=== PATIENT | male | born 1955 | race Caucasian/White ===

== ENCOUNTER 2022-09-05 15:45 | Outpatient (CLI) | payer MEDICARE, OTHER, SELFPAY | END 2022-09-05 15:46 | disposition home or self-care (01) | PROVIDERS: PCP Family Medicine; Visit Provider Family Medicine | DX: Z00.00 Encounter for general adult medical examination without abnormal findings (principal); R53.83 Other fatigue; I10 Essential (primary) hypertension; R73.01 Impaired fasting glucose; Z13.6 Encounter for screening for cardiovascular disorders; Z12.5 Encounter for screening for malignant neoplasm of prostate | CPT/HCPCS: 80053; 80061; 84153; 84443 ==

== ENCOUNTER 2022-10-01 20:29 | Outpatient (CLI) | payer MEDICARE, SELFPAY ==
--- NOTE | 2022-10-17 08:50 | W.PM.SLEEP ---
Sleep Study Details Details Interpreting Provider: Fanny Date of Sleep Study: 10/01/22 Sleep Study Details: STUDY TYPE:? Hospital-based with CPAP titration ? BMI:? 44.2 ORDERING PROVIDER:? Patti INDICATION:? Concerns about sleep apnea ? SLEEP SUMMARY:? 321 minutes total sleep time, efficiency 68.8, arousal index 38.5 RESPIRATORY SUMMARY:? AHI 51.6, RDI 88.7 Supine AHI 124.4. There was no supine REM stage sleep. Nonsupine AHI 16.2, nonsupine RDI 71.4 CPAP was titrated to a pressure of 17 decreasing AHI to 1.3 including 53 minutes of mixed supine and nonsupine REM stage sleep. This would be considered a successful titration. PERIODIC LIMB MOVEMENTS OF SLEEP:? Pretreatment index 18.9, index with arousal 0. Post treatment index 0. CARDIAC:? Awake 66, asleep 56, frequent PVCs and PACs noted IMPRESSION:? Severe obstructive sleep apnea with supine position dependency. CPAP titration was relatively affected at a pressure of 17 decreasing AHI to 1.3 including both supine and nonsupine REM stage sleep. RECOMMENDATION: Would initiate AutoSet CPAP at a pressure of 12-18. Close follow-up is recommended.
== END 2022-10-01 20:30 | disposition home or self-care (01) ==
LOC: SLEEP 20:29
PROVIDERS: PCP Family Medicine; Visit Provider Family Medicine
DX: G47.33 Obstructive sleep apnea (adult) (pediatric) (principal)
CPT/HCPCS: 95811; A9270

== ENCOUNTER 2022-12-07 08:16 | Outpatient (CLI) | payer MEDICARE, SELFPAY | END 2022-12-07 08:17 | disposition home or self-care (01) | LOC: NFLDREF 13:03 | PROVIDERS: PCP Family Medicine; Referring Provider Family Medicine; Visit Provider Family Medicine | DX: I10 Essential (primary) hypertension (principal) | CPT/HCPCS: 80048 ==

== ENCOUNTER 2022-12-12 08:15 | Outpatient (CLI) | payer MEDICARE, SELFPAY ==
--- NOTE | 2022-12-12 08:15 | CRLHL7_ITS ---
For Patients: As a result of the Century Cures Act, medical imaging exams and procedure reports are released immediately into your electronic medical record. You may view this report before your referring provider. If you have questions, please contact your health care provider. Indication: palpable lump posterior right torso Technique: Grayscale and color Doppler ultrasound of the right posterior thorax subcutaneous tissues performed. Comparison: None Findings: There is a circumscribed near isoechoic solid mass without abnormal vascularity within the subcutaneous fat measuring approximately 10.3 x 3.5 x 9.9 cm. Impression: Subcutaneous lipoma. Dictated by Moe Mccauley MD @ 12/12/2022 9:19:59 AM (Electronically Signed)
== END 2022-12-12 08:16 | disposition home or self-care (01) ==
LOC: US 08:15
PROVIDERS: PCP Family Medicine; Visit Provider Surgery
DX: D17.1 Benign lipomatous neoplasm of skin and subcutaneous tissue of trunk (principal)
CPT/HCPCS: 76536

== ENCOUNTER 2022-12-22 15:04 | Outpatient (CLI) | payer MEDICARE, SELFPAY | END 2022-12-22 15:05 | disposition home or self-care (01) | LOC: NFLDREF 15:05 | PROVIDERS: PCP Family Medicine; Visit Provider Family Medicine | DX: Z01.818 Encounter for other preprocedural examination (principal) | CPT/HCPCS: 80048 ==

== ENCOUNTER 2022-12-25 07:59 | Day surgery (SDC) | payer MEDICARE, SELFPAY ==
[2022-12-25] MEDS: LACTATED RINGERS 1000 ML 1,000 ML 100 ML IV (08:05)
[2022-12-25] MEDS: SODIUM CHLORIDE 0.9 % (FLUSH) 10 ML SYRINGE IVF (08:10)
[2022-12-25 08:12] VITALS: BP 178/96; PULSE 65; RESP 16; TEMP 36.7; O2SAT 99; BMI 42.9
[2022-12-25] MEDS: LIDOCAINE 1 % PF 30 ML INJECTION (10:09)
[2022-12-25] MEDS: BUPIVACAINE 0.25% 30 ML INJECTION (10:09)
[2022-12-25 10:45] VITALS: BP 150/85; PULSE 72; RESP 16; TEMP 36.6; O2SAT 98
--- NOTE | 2022-12-25 10:55 | P.GSOP_ITS ---
Operative Note Pre-op diagnosis: Back lipoma Post-op diagnosis: Same Type of Procedure: Excision back mass, 10 x 8 x 3 cm Indications: The patient is a 67-year-old male who developed a mass of his back. Imaging revealed this to be a lipoma likely subcutaneous. Given its size I recommended excision in the OR and he agreed to proceed. Procedure Description: After discussing the risks and benefits of the procedure, the patient signed informed consent.? The operative site was marked and the patient was brought to the operating room and placed on the operating table in left lateral decubitus position.? Care was taken to pad the patient's pressure points.?? The patient was then given sedation by anesthesia.?? The operative site was then prepped and draped in the usual sterile fashion.? A time-out was then performed. Local anesthetic was injected into the skin and subcutaneous tissue overlying the mass. A skin incision was then created and dissection was taken down into the subcutaneous tissue using cautery. An encapsulated mass was encountered. This was easily dissected from the surrounding tissue. It did appear to abut muscle laterally, however medially it was subcutaneous. This was removed in its entirety. Cautery was used for hemostasis. The subcutaneous space was then closed with 3-0 Vicryl suture. 3-0 Vicryl was used to close the dermal layer 4- 0 Monocryl in a running subcuticular fashion. Glue was then applied. ? The patient was then woken and transported to the recovery area in stable condition. ? The patient tolerated the procedure well. Findings: 8 x 10 x 3 cm lipoma Anesthesia: MAC Surgeon: Debbie Reynolds MD Estimated blood loss (mL): 5 Additional Specimen Information: Right back mass Condition: stable Disposition: same day Date of procedure: 12/25/22
[2022-12-25 11:00] VITALS: BP 152/82; PULSE 70; RESP 16; O2SAT 98
--- NOTE | 2022-12-25 11:02 | W.ANESCHARGE ---
Anesthesia Charges Start Date/Time Anesthesia Start Date: 12/25/22 Anesthesia Start Time: 09:46 Stop Date/Time Anesthesia Stop Date: 12/25/22 Anesthesia Stop Time: 10:44
== END 2022-12-25 11:31 | disposition home or self-care (01) ==
PROVIDERS: PCP Family Medicine; Visit Provider Surgery
PROC: (CPT 21931; principal; 2022-12-25 09:15)
DX: D17.1 Benign lipomatous neoplasm of skin and subcutaneous tissue of trunk (principal)
CPT/HCPCS: 21931; 300; 88304; 88377; J0665; J1100; J2001; J2250; J2405; J2704; J3010; J7120

== ENCOUNTER 2023-02-07 08:15 | Outpatient (CLI) | payer MEDICARE, SELFPAY | END 2023-02-07 08:16 | disposition home or self-care (01) | LOC: NFLDREF 20:46 | PROVIDERS: PCP Family Medicine; Referring Provider Family Medicine; Visit Provider Family Medicine | DX: I10 Essential (primary) hypertension (principal) | CPT/HCPCS: 80048 ==

== ENCOUNTER 2023-03-30 12:21 | Outpatient (CLI) | payer MEDICARE, SELFPAY ==
--- NOTE | 2023-03-30 12:57 | W.ANESCHARGE ---
Anesthesia Charges Start Date/Time Anesthesia Start Date: 03/30/23 Anesthesia Start Time: 12:55 Stop Date/Time Anesthesia Stop Date: 03/30/23 Anesthesia Stop Time: 13:36
--- NOTE | 2023-03-30 14:00 | W.ANESCHARGE ---
Anesthesia Charges Start Date/Time Anesthesia Start Date: 03/30/23 Anesthesia Start Time: 12:55 Stop Date/Time Anesthesia Stop Date: 03/30/23 Anesthesia Stop Time: 13:36
== END 2023-03-30 12:22 | disposition home or self-care (01) ==
LOC: OP CLINIC 12:22
PROVIDERS: PCP Family Medicine; Visit Provider Internal Medicine
DX: Z12.11 Encounter for screening for malignant neoplasm of colon (principal); K57.30 Diverticulosis of large intestine without perforation or abscess without bleeding; D12.5 Benign neoplasm of sigmoid colon; D12.2 Benign neoplasm of ascending colon; D12.4 Benign neoplasm of descending colon; D12.3 Benign neoplasm of transverse colon
CPT/HCPCS: 00811; 00812; 45380; 45385; 88305; J2704

== ENCOUNTER 2023-05-15 09:08 | Outpatient (CLI) | payer MEDICARE, SELFPAY ==
--- OUTSIDE RECORDS SUMMARY | 2023-05-16 07:22 | XMS_ITS | Clinical Summary ---
Author Name Unknown Organization [facility] Address [place], [place] [address] Care Team Providers Care Cell Manager Name Role Phone No, Pcp [[id number]] Primary Care Provider Unavailabl e Allergies No known active allergies Medications No known medications Family History Medical History Relation Name Comments Anesthesia Problem No Family History Blood Disease No Family History Cancer No Family History Social History Tobacco Use Types Packs/Day Years Used Date Smoking Tobacco: Never Smokeless Tobacco: Never Tobacco Cessation:Counseling Given: Yes Alcohol Use Standard Drinks/Week Comments Yes 0 (1 standard drink = 0.6 oz pur e alcohol) Social 2-3 per weekend Sex and Gender Information Value Date Recorded Sex Assigned at Not on file Gender Identity Not on file Sexual Orientation Not on file Obstetrics History Last Filed Vital Signs Vital Sign Reading Time Taken Comments Blood Pressure 151/92 08/16/2015 9:08 AM CDT Pulse 73 08/16/2015 9:08 AM CDT Temperature 37.1 ??C (98.8 ??F) 08/16/2015 9:04 AM CD T Respiratory Rate - - Oxygen Saturation 99% 08/16/2015 9:04 AM CDT Inhaled Oxygen Concentration - - Weight 143.5 kg (316 lb 6 oz) 08/16/2015 9:04 AM CDT Height 189.9 cm (6' 2.75) 08/16/2015 9:04 AM CD T Body Mass Index 39.81 08/16/2015 9:04 AM CDT Plan of Treatment Health Maintenance Due Date Last Done Comments COVID-19 vaccine series (#1) [birth year]/10/1956 Tdap 11/08/1967 Depression screening for age 12+ 1968 Hepatitis C screening for age 18-79 1974 Tetanus booster 1976 Colonoscopy through age 75 2001 Lipids for age 45-75 2001 Zoster (shingles) series for age 50+ (1 of 2) 11/08/19 07 BMI (ht and wt on same day) for age 18+ 08/15/2016 0 08/16/2015 Pneumococcal series for age 65+ (1 of 1 - PCV) 022 Influenza for age 65+ 12/08/2022 Care Teams Cell Manager Relationship Specialty Start Date End Date NO, PCP [[id number]] PCP - General 08/16/15
== END 2023-05-15 09:09 | disposition home or self-care (01) ==
LOC: NFLDREF 05-16 07:20
PROVIDERS: PCP Family Medicine; Referring Provider Family Medicine; Visit Provider Family Medicine
DX: I10 Essential (primary) hypertension (principal)
CPT/HCPCS: 80048

== ENCOUNTER 2023-05-30 08:31 | Outpatient (CLI) | payer MEDICARE, SELFPAY | END 2023-05-30 08:32 | disposition home or self-care (01) | LOC: NFLDREF 05-31 07:32 | PROVIDERS: PCP Family Medicine; Visit Provider Family Medicine | DX: I10 Essential (primary) hypertension (principal) | CPT/HCPCS: 80048 ==

== ENCOUNTER 2023-06-14 08:29 | Outpatient (CLI) | payer MEDICARE, SELFPAY | END 2023-06-14 08:30 | disposition home or self-care (01) | PROVIDERS: PCP Family Medicine; Visit Provider Family Medicine | DX: E66.01 Morbid (severe) obesity due to excess calories (principal); Z68.41 Body mass index [BMI] 40.0-44.9, adult; I10 Essential (primary) hypertension | CPT/HCPCS: G0463 ==

== ENCOUNTER 2023-06-28 08:31 | Outpatient (CLI) | payer MEDICARE, SELFPAY ==
[2023-06-28 10:29] VITALS: BMI 32.3
== END 2023-06-28 08:32 | disposition home or self-care (01) ==
PROVIDERS: PCP Family Medicine; Visit Provider Dietitian, Registered
DX: E66.01 Morbid (severe) obesity due to excess calories (principal); Z99.3 Dependence on wheelchair
CPT/HCPCS: G0463

== ENCOUNTER 2024-07-07 08:48 | Outpatient (CLI) | payer MEDICARE, BC, SELFPAY | END 2024-07-07 08:49 | disposition home or self-care (01) | LOC: NFLDREF 22:38 | PROVIDERS: PCP Family Medicine; Referring Provider Family Medicine; Visit Provider Family Medicine | DX: E78.5 Hyperlipidemia, unspecified (principal); I10 Essential (primary) hypertension; Z12.5 Encounter for screening for malignant neoplasm of prostate | CPT/HCPCS: 80053; 80061; G0103 ==

== ENCOUNTER 2024-09-23 13:51 | Outpatient (CLI) | payer MEDICARE, BC, SELFPAY ==
--- NOTE | 2024-09-23 14:00 | CRLHL7_ITS ---
For Patients: As a result of the Century Cures Act, medical imaging exams and procedure reports are released immediately into your electronic medical record. You may view this report before your referring provider. If you have questions, please contact your health care provider. INDICATION: Localized swelling with mass or lump. TECHNIQUE: Axial, coronal and sagittal T1 and STIR and axial T2 precontrast sequences. 20 mL of DuoDerm IV contrast with T1 fat-sat postcontrast sequences. Initial exam performed 23 September. Patient returns for repeat imaging with marker at unspecified later date. FINDINGS: Marker is noted at the lateral proximal thigh. No discrete underlying abnormality of the skin, subcutaneous adipose, muscle or fascia. Normal cortical and medullary signal in the hip and femur. No abnormal postcontrast enhancement. Muscle bulk and signal normal. Hamstrings intact. Gluteal tendons insert normally at the greater trochanter. No effusion of the hip. IMPRESSION: No MR finding to correlate with reported symptoms. No significant abnormality appreciated. Dictated by Winston Solsi MD @ 09/29/2024 4:49:38 PM (Electronically Signed)
== END 2024-09-23 13:52 | disposition home or self-care (01) ==
LOC: MRI 13:53
PROVIDERS: PCP Family Medicine; Visit Provider Surgery
DX: R22.9 Localized swelling, mass and lump, unspecified (principal)
CPT/HCPCS: 73720; A9575

== ENCOUNTER 2024-09-30 08:49 | Outpatient (CLI) | payer MEDICARE, BC, SELFPAY | END 2024-09-30 08:50 | disposition home or self-care (01) | LOC: NFLDREF 10:03 | PROVIDERS: PCP Family Medicine; Visit Provider Family Medicine | DX: I10 Essential (primary) hypertension (principal) | CPT/HCPCS: 80048 ==

== ENCOUNTER 2024-10-07 06:17 | Day surgery (SDC) | payer MEDICARE, BC, SELFPAY ==
[2024-10-07 06:31] VITALS: BMI 43.9
[2024-10-07] MEDS: SODIUM CHLORIDE 0.9 % (FLUSH) 10 ML SYRINGE IVF (06:34)
[2024-10-07] MEDS: LACTATED RINGERS 500 ML 500 ML 100 ML IV (06:34)
[2024-10-07 06:48] VITALS: BP 142/76; PULSE 63; RESP 16; TEMP 36.4; O2SAT 98
--- NOTE | 2024-10-07 07:11 | W.PM.H&PU ---
History & Physical Update History & Physical Update H&P Reviewed and patient assessed: No changes noted
--- NOTE | 2024-10-07 07:14 | PM.GSPRC ---
Operative Note Date of procedure: 10/07/24 Pre-op diagnosis: 1. 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 Post-op diagnosis: Same Type of Procedure: 1. Wide local excision of right thigh margins. Indications: 68-year-old male was seen in clinic with an enlarging subcutaneous mass for 6 months. Patient underwent excision of this mass on 08/27/2024. Pathology came back as dermal leiomyosarcoma diffusely involving the dermis and extending into subcutaneous fat. Tumor extended to the peripheral margins. Re-excision with 1 cm negative margins was recommended. Patient was also referred for right femur MRI that did not show any abnormalities in subcutaneous fat or invasion into right thigh muscle. Given patient's pathology results, re-excision in the operating room was recommended. The procedure was discussed in detail. The risks associated procedure including infection, bleeding, and the need for additional procedures were all discussed with the patient, he agreed to proceed. In preoperative area patient's incision was examined and appeared erythematous. This was concerning for infection. A plan was made to place patient on antibiotics after this surgical procedure. Procedure Description: After discussing the risks and benefits of the procedure, the patient signed informed consent.? The operative site was marked and the patient was brought to the operating room and placed on the operating table in the left lateral decubitus position.? Care was taken to pad the patient's pressure points.?? The patient was then sedated by anesthesia.?? The operative site was then prepped and draped in the usual sterile fashion.? A time-out was then performed. Local anesthetic was injected at the surgical site. Surgical incision was noted in the right thigh and had surrounding erythema suspicious for infection. Lateral and medial 1 cm margins were marked with a marking pen. The ellipse of skin was then marked with a marking pen. A vertical elliptical skin incision was made with a scalpel around a healing scar. Subcutaneous fat was divided with cautery down to the superficial fascia. The deep margin was grossly at least 2 cm. The ellipse of skin containing the healing scar was then excised with cautery. It was marked with a single stitch superior and double lateral and sent to pathology. The surgical incision was measuring 15 x 8.5 cm and was closed in layers. It was difficult to reapproximate the incisional edges. Perforating towel clamps were used to relieve tension. Multiple interrupted sutures were placed with 0-0 Vicryl and 2-0 Vicryl. There was tension in the center of the incision. The skin was then closed with a running 4-0 Monocryl stitch. In the center of the incision 4 vertical mattress sutures were placed with 2-0 nylon. Steri-Strips were applied over the superior and inferior part of the incision. Bacitracin was placed in the center the incision. Gauze and tape were placed over the incision. ? The patient was then woken and transported to the recovery area in stable condition. ? The patient tolerated the procedure well. Findings: The incision was difficult to close with central mild tension. Anesthesia: MAC and local Surgeon: Jose Alejandro Covarrubias MD Estimated blood loss (mL): 5 Additional Specimen Information: 1. Right thigh margins. Condition: stable Disposition: same day
[2024-10-07] MEDS: BUPIVACAINE 0.25% 30 ML INJECTION (07:44)
[2024-10-07] MEDS: LIDOCAINE 1%-EPI 1:100,000 20 ML INFILTRATI (07:44)
[2024-10-07] MEDS: BACITRACIN OINTMENT BULK TUBE 1 APPLIC TOPICAL (08:42)
[2024-10-07 08:50] VITALS: BP 110/80; PULSE 66; RESP 16; TEMP 36.8; O2SAT 96
--- NOTE | 2024-10-07 09:01 | P.ANES_ITS ---
Anesthesia Charges Start Date/Time Anesthesia Start Date: 10/07/24 Anesthesia Start Time: 07:28 Stop Date/Time Anesthesia Stop Date: 10/07/24 Anesthesia Stop Time: 08:52 Coding CPT Codes CPT Codes: ANESTH SKIN EXT/PER/ATRUNK - 09566 ([id number]) P3 - PATIENT W/SEVERE SYS DISEASE, QZ - PURCHASING ANALYST SVC W/O PLUSH CUTTER BY
--- NOTE | 2024-10-07 09:01 | W.ANESCHARGE ---
Anesthesia Charges Start Date/Time Anesthesia Start Date: 10/07/24 Anesthesia Start Time: 07:28 Stop Date/Time Anesthesia Stop Date: 10/07/24 Anesthesia Stop Time: 08:52 Coding CPT Codes CPT Codes: ANESTH SKIN EXT/PER/ATRUNK - 02942 ([id number]) P3 - PATIENT W/SEVERE SYS DISEASE, QZ - GAME DESIGNER/CREATIVE DIRECTOR SVC W/O PSYCHOLOGIST EDUCATIONAL BY
[2024-10-07 09:05] VITALS: BP 117/64; PULSE 60; RESP 16; O2SAT 95
[2024-10-07 09:21] VITALS: BP 125/65; PULSE 60; RESP 16; O2SAT 96
[2024-10-07 09:30] VITALS: BP 124/74; PULSE 60; RESP 16; O2SAT 95
== END 2024-10-07 09:45 | disposition home or self-care (01) ==
PROVIDERS: PCP Family Medicine; Visit Provider Surgery
PROC: (CPT 11606; principal; 2024-10-07 07:30)
DX: C44.702 Unspecified malignant neoplasm of skin of right lower limb, including hip (principal)
CPT/HCPCS: 11606; 12036; 00400; 88305; J0665; J0690; J1100; J2405; J2704; J3010; J3490; J7120